=== PATIENT | male | born 1965 | race Caucasian/White ===

== ENCOUNTER 2024-07-20 14:23 | Emergency (ER) | payer MEDICAID, SELFPAY ==
[2024-07-20 14:32] VITALS: BP 146/83; PULSE 67; RESP 16; TEMP 36.6; O2SAT 97
--- NOTE | 2024-07-20 16:31 | ED.GENADUL_ITS ---
Discharge Plan Disposition Patient Disposition: Home Condition: Stable Discharge Details Chief Complaint: Abd Prob Clinical Impression: Hernia, inguinal, right ED Provider: Syd Casey Home Meds and New Rx's Prescriptions: No Action No Known Home Meds Discharge Instructions Additional Instructions: You likely have a hernia that goes. If you are able to push it back and you do not need to seek emergent medical care. Try to avoid heavy lifting is much as you can. I have placed you on our follow-up list to see general surgery, you should receive a phone call with an appointment. If you have severe worsening pain or are unable to push the hernia back in return to the emergency department for reevaluation. HPI General Mode of arrival: ambulatory . Date/Time Provider Initiated Documentation: 07/20/24 14:46 . Limitations to Documentation: no limitations . Information obtained by: patient . History of Present Illness 58 year old M presents to the emergency department with the chief complaint of right inguinal hernia, described as mild, Quality is described as aching, Patient started experiencing this month(s) (2) and it has been intermittent. No relieving factors improve symptom(s), No exacerbating factors reported . Patient notes denies chest pain and shortness of breath. Patient did receive the following treatments prior to arrival, none Related Data Home Medications ?Medication ?Instructions ?Recorded ?Confirmed Unknown [No Known Home Meds] 07/20/24 07/20/24 Allergies Allergy/AdvReac Type Severity Reaction Status Date / Time banana Allergy Severe Anaphylaxis Verified 07/20/24 14:41 grapefruit Allergy Severe Anaphylaxis Verified 07/20/24 14:41 orange juice Allergy Severe Anaphylaxis Verified 07/20/24 14:41 pistachio nut Allergy Severe Anaphylaxis Verified 07/20/24 14:41 General Stated Complaint: Abd Prob HIGINIO: 4 Review of Systems All systems reviewed & are unremarkable except as noted in HPI and below Constitutional Constitutional: Denies chills, Denies fever(s) and Denies weakness Cardiovascular Cardiovascular: Denies chest pain and Denies dyspnea Respiratory Respiratory: Denies cough and Denies dyspnea Gastrointestinal Gastrointestinal: Reports abdominal pain, Denies nausea and Denies vomiting Neurologic Neurologic: Denies weakness Exam Const General: no acute distress Orientation: alert HENMT Head: normal to inspection Ears: external ears normal General nose exam: external nose normal Mouth: moist mucous membranes Eyes General: appearance normal, both eyes and all related structures Neck Neck: normal visual inspection Resp Effort & Inspection: normal respiratory effort and able to speak in complete sentences Cardio Rate: regular rate GI Palpation: soft, not firm, no guarding and nontender Skin General skin exam: no rashes or lesions noted Neuro General: patient alert and patient oriented x3 Extrem General: normal to inspection Psych Mental Status: mental status grossly normal Course Vital Signs Vital signs: Vital Signs Temperature 36.6 C 07/20/24 14:32 Pulse 67 07/20/24 14:32 Respiratory Rate 16 07/20/24 14:32 Blood Pressure 146/83 H 07/20/24 14:32 Pulse Oximetry 97 07/20/24 14:32 Temperature 36.6 C 07/20/24 14:32 Temperature Source Oral 07/20/24 14:32 Pulse 67 07/20/24 14:32 Respiratory Rate 16 07/20/24 14:32 Blood Pressure 146/83 H 07/20/24 14:32 Pulse Oximetry 97 07/20/24 14:32 Oxygen Delivery Method Room Air 07/20/24 14:32 Oxygen Flow Rate 0 07/20/24 14:32 Pain Level 4 07/20/24 14:32 Medical Decision Making 58-year-old male who denies any chronic medical problems comes in with several months of intermittent right inguinal area pain states he feels a mass intermittently and will push it back in. Denies any vomiting, fevers. He says that he does a lot of heavy lifting and notices it when he is doing this. He currently has no pain but the area that he says that he feels the mass is able to push it and it is in the inguinal canal. There is no palpable deformities now or tenderness currently. His story seems consistent with likely inguinal hernia. Given he has no tenderness or hernia currently I doubt strangulated or incarcerated hernia and I do not feel any labs or imaging are indicated. I will provide a follow-up referral to see general surgery in the next week or 2. Return precautions given Differential Diagnosis Differential Diagnosis: Hernia, inguinal hernia Quality:SDOH Health Related Social Needs: No Data to Display PFSH All Active Problems (Updated 07/20/24 @ 16:35 by Syd Casey MD) Hernia, inguinal, right (Acute) Social History Smoking/Tobacco Use Status: Never Smoking risk assessment performed?: Yes Alcohol Intake: current Alcohol Intake frequency: 0-2 drinks per day Alcohol type: beer and hard liquor Substance use type: marijuana PAWSS Have you Been Recently Intoxicated or Drunk Within the Last 30 days?: No Have you Ever Experienced Previous Episodes of Alcohol Withdrawal?: No Have you ever Experienced Withdrawal Seizures?: No Have you ever Experienced Delirium Tremens(DT)s?: No Have you ever undergone Alcohol Rehabilitation Treatment (i.e, inpt ot outpatient treatment programs)?: No Have you ever Experienced Blackouts?: No Have you ever Combined Alcohol with other Downers within the last 90 days?: No Have you ever Combined Alcohol with any other Substance of Abuse during the last 90 days?: Yes Positive Blood Alcohol level on Presentation? [PCS.BAL]: No Evidence of Increased Autonomic Activity (i.e. HR>120, tremor, sweating, agitation, nausea)?: No Result: 2
[2024-07-20 16:44] VITALS: BP 116/75; PULSE 68; RESP 20; O2SAT 98
== END 2024-07-20 16:46 | disposition home or self-care (01) ==
LOC: ER 16:40
PROVIDERS: Emergency Provider Emergency Medicine; PCP Nurse Practitioner Family
DX: K40.90 Unilateral inguinal hernia, without obstruction or gangrene, not specified as recurrent (principal)
CPT/HCPCS: 99283

== ENCOUNTER 2024-12-25 09:25 | Outpatient (REF) | payer MEDICAID, SELFPAY ==
[2024-12-25 15:11] LABS: HCT 43.9 % (40.0-50.0); HGB 14.6 g/dL (13.5-17.5); MCH 30.8 pg (27.0-33.0); MCHC 33.3 % (32.0-36.0); MCV 93 fL (80-95); MPV 9.8 fL (8.0-11.0); Platelet Count 287 10^3/uL (130-400); RBC 4.74 10^6/uL (4.36-5.78); RDW 11.6 % (11.8-14.1); RDW-SD 39.4 fL; WBC 7.94 10^3/uL (4.4-10.8)
[2024-12-25 15:14] LABS: ESR 2 mm/hr (0-20)
[2024-12-25 16:08] LABS: ALT 40 U/L (16-63); AST 17 U/L (15-37); Albumin 3.7 g/dL (3.4-5.0); Alkaline Phosphatase 76 U/L (46-116); Anion Gap 9.2 mmol/L (3-11); BUN 16 mg/dL (7-18); Bilirubin, Total 0.5 mg/dL (0.2-1.0); CO2 26.8 mmol/L (21.0-32.0); Calcium 8.6 mg/dL (8.5-10.1); Chloride 105 mmol/L (98-107); Cholesterol 185 mg/dL (<200); Glucose 95 mg/dL (74-106); HDL Cholesterol 64 mg/dL (>or=40); Potassium 4.5 mmol/L (3.5-5.1); Sodium 141 mmol/L (136-145); TSH (W/Ref FT4) 0.93 uIU/mL (0.36-3.74); Total Protein 6.4 g/dL (6.4-8.2)
[2024-12-25 16:47] LABS: C-Reactive Protein < 0.50 mg/dL (<or=0.5)
== END 2024-12-25 09:26 | disposition home or self-care (01) ==
LOC: LBN 09:25
PROVIDERS: PCP Nurse Practitioner Family; Visit Provider Family Medicine
DX: F31.9 Bipolar disorder, unspecified (principal); Z13.220 Encounter for screening for lipoid disorders
CPT/HCPCS: 80053; 80061; 85027; 85652; 86200; 84443; 86038; 86140; 86431

== ENCOUNTER 2025-01-13 07:04 | Day surgery (SDC) | payer MEDICAID, SELFPAY ==
[2025-01-13 07:20] VITALS: BP 141/93; PULSE 70; RESP 16; TEMP 36.6; O2SAT 96
--- NOTE | 2025-01-13 07:25 | W.PM.HP.N ---
Date of service: 01/13/25 Time of Service: 08:16 Assessment and Plan Assessment and plan (1) Bilateral inguinal hernia without obstruction or gangrene: Status: Acute Assessment and plan: Plan lap bilateral inguinal hernia repair with mesh. Right side is recurrent from a childhood repair. risks, benefits, alternatives and expectations including pain, bleeding, infection, recurrence, mesh infection, reviewed with patient and he is agreeable to proceeding. I give him my word that me and the care team will not vaccinate him while he is under anesthesia. We do not administer vaccines in surgery, and even if we did, we would never give a vaccine without a consent. That is not a part of my world or my care plan for him. I will reschedule him for 7 days from now to ensure his cardiopulmonary health is optimized. The proximity of time of surgery to recent cocaine use overnight increases his risk for perioperative morbidity, and this repair is not emergent. He is agreeable to rescheduling at my recommendation to do so. I will have my office call him to reschedule. (2) Recurrent inguinal hernia of right side without obstruction or gangrene: Status: Acute History of Present Illness History of Present Illness Chief Complaint: Bilateral inguinal hernia Narrative: HPI: 59yo M here for lap bilateral inguinal hernia repair with mesh. He was seen in office in september. HPI from that visit is as follows for reference. Denies change in health. He does admit to using cocaine overnight to help him stay awake as he drove back to [place] from [place]. He used it once over the weekend as well. This is a 58-year-old male here to see me for right inguinal hernia. He went to the emergency department several months ago as he started having pain and a hernia that has been present for many years. He has had it for many years he says but cannot quantify further. He says that he only ever noticed a bulge with out pain. He has not had pain in it for years until this year. He began feeling a sharp poking pains especially when the hernia was bulging out. Reducing the hernia relieve the discomfort and pain he experienced. With increased activity or heavier weight lifting he feels the bulge and discomfort more. A few days ago he was carrying heavy bags over his head that weighed over 50 pounds each. Lifting episode he experienced more severe pain that took him some time to recover from. He says that he reduced the hernia but was very tender to the touch in the groin on the right side for a couple of hours after that. He has never had an incident where the hernia became incarcerated. There are no skin changes over the hernia. He does not have symptoms on the left side and is not aware of hernia on the left. The patient is very active in his everyday life. He enjoys golf recreationally and has been golfing a lot. He mows and tends to his garden. He does a lot of heavy lifting in his day-to-day life. He does not smoke tobacco and is not a diabetic. The patient states that he lives off grid. He is not trusting of doctors in medicine after COVID and especially pertaining to vaccines. He asks me to guarantee to him that I will not vaccinate him while he is under anesthesia. I told him that I fully support his personal decision for his own health. I absolutely can guarantee that he will not be vaccinated against his wishes while he is under anesthesia in the operating room. Unfortunately his cannot be present in the operating room during surgery which was one of his initial requests, but I told him to visit with me today and see if he trusts me enough to go to surgery with me or not. If he can trust me and trust my guarantee then I will be happy to operate on him. PFSH All Active Problems Multiple food allergies (Acute) Arthralgia (Acute) Bipolar 1 disorder (Acute) Per pt report. DX in 2018. -hb Recurrent inguinal hernia of right side without obstruction or gangrene (Acute) Bilateral inguinal hernia without obstruction or gangrene (Acute) Surgical History Hx of appendectomy History of right hip replacement Family History Mother Breast cancer Hypertension Father Schizophrenia Sister Breast cancer Hypertension Daughter No problems noted. Son No problems noted. Social History Smoking/Tobacco Use Status: Never Smoking risk assessment performed?: Yes Alcohol Intake: current Alcohol Intake frequency: 0-2 drinks per day Alcohol type: beer and hard liquor Drug use: Daily Substance use type: marijuana Details: edible butter Housing: house Do you feel safe at home: Yes Do you feel safe in your relationship?: Yes Meds Allergies and Home Medications Allergies Allergy/AdvReac Type Severity Reaction Status Date / Time banana Allergy Severe Anaphylaxis Verified 01/13/25 07:34 grapefruit Allergy Severe Anaphylaxis Verified 01/13/25 07:34 orange juice Allergy Severe Anaphylaxis Verified 01/13/25 07:34 pistachio nut Allergy Severe Anaphylaxis Verified 01/13/25 07:34 bee pollen Allergy Anaphylaxis Verified 01/13/25 07:34 Home Medications ?Medication ?Instructions ?Recorded ?Confirmed ?Type diphenhydramine HCl 25 mg tablet 25 mg PO DIRECTED 11/06/24 01/13/25 History (Allergy Medicine) cannibus CocoButter topical 11/29/24 12/25/24 History epinephrine 0.3 mg/0.3 mL 0.3 ml IM Q5-15M PRN 12/25/24 01/13/25 Rx injection, auto-injector hypersensitivity reaction #2 ea Exam Narrative Exam Narrative: awake, NAD eomi, MMM midline trachea, neck is symmetric PULM: normal resp effort, equal chest rise with respiration, no wheezing audible CARDIAC: normal PMI, no jvd, regular rate, normal perfusion abdomen is nondistended. extremities are without deformity, normal movement of all four extremities speech is clear and coherent mood and affect are congruent, no focal neurological deficits skin without rash Time Spent Time spent with Patient: <40 minutes Time was spent: referring, communicating with other health career and technology education teacher, counseling the patient and care coordination
== END 2025-01-13 07:05 | disposition home or self-care (01) ==
LOC: SUR 07:04
PROVIDERS: PCP Nurse Practitioner Family; Visit Provider Surgery
DX: Z53.8 Procedure and treatment not carried out for other reasons (principal); K40.20 Bilateral inguinal hernia, without obstruction or gangrene, not specified as recurrent; K40.91 Unilateral inguinal hernia, without obstruction or gangrene, recurrent
CPT/HCPCS: J0131; J1100; J1885; J2003; J2405; J2704; J3475

== ENCOUNTER 2025-01-20 11:10 | Day surgery (SDC) | payer MEDICAID, SELFPAY ==
--- NOTE | 2025-01-20 07:52 | W.PM.DSUDISC ---
Date of service: 01/20/25 Discharge Plan Disposition Patient Disposition: Home Condition: Stable Discharge Details Attending Provider: Yisel José Primary Care Provider: Beau Cantu Home Meds and New Rx's Prescriptions: New hydrocodone-acetaminophen 5-325 mg tablet 1 tab PO Q6H PRNQty: 10 0RF Continued epinephrine 0.3 mg/0.3 mL auto-injector 0.3 ml IM Q5-15M PRN (Reason: hypersensitivity reaction) Qty: 2 4RF cannibus CocoButter emulsion topical diphenhydramine HCl [Allergy Medicine] 25 mg tablet 25 mg PO DIRECTED Discharge Instructions Additional Instructions: Additional Instructions: Shower in 24 hours. Wash gently over skin glue with soapy hands, rinse, pat dry. Don't peel glue or submerge incisions under water. Do not clean the glue with rubbing alcohol or any solvents beyond your regular soap/body wash and water. The glue will start to come off on its own in about 2 weeks. Ok to walk, climb stairs, and resume normal activities of daily living. Do not lift/push/pull more than 20lb for 4 weeks. Do not exercise until cleared by surgeon in office. Swelling and bruising in the groin and scrotum is normal and expected. You may even notice an eggplant-like change to the scrotum or labia on the side(s) of the repair. This is harmless and will improve over time. Elevate the scrotum with washcloth rolls while laying down, or gently ice the swollen areas for 2-4 minutes at a time if desired for comfort. Monitor yourself for constipation during recovery. Add a stool softener or laxative if no BM within 36 hours. Call or return for fever or incisional problems. Activity:: as above Shower/Bathe:: 24 hours Diet:: As Tolerated Stand Alone Forms: Portal Information DS: Diagnosis Discharge Diagnosis (1) Bilateral inguinal hernia without obstruction or gangrene: Status: Acute
[2025-01-20 11:45] VITALS: BP 149/101; PULSE 67; RESP 16; TEMP 37; O2SAT 97
== END 2025-01-20 11:11 | disposition home or self-care (01) ==
LOC: SUR 11:11
PROVIDERS: PCP Nurse Practitioner Family; Visit Provider Surgery
DX: Z53.09 Procedure and treatment not carried out because of other contraindication (principal)
CPT/HCPCS: J1100; J2003; J2405; J2704